=== PATIENT | female | born 1985 | race American Indian/Alaskan Native ===

== ENCOUNTER 2019-12-12 21:13 | Emergency (ER) | payer SELFPAY ==
[2019-12-12 21:48] LABS: Amorphous Crystals,Urine Few; Bacteria,Urine 1+ /HPF (Negative); Bilirubin,Urine NEG (Negative); Blood,Urine NEG (Negative); Calcium Oxalate Crystals,Urine 1+; Color,Urine Yellow (Yellow); Mucus,Urine FEW /HPF; Protein,Urine <15 mg/dL mg/dL (Negative)
[2019-12-12 21:50] LABS: HCG Qualitative,Urine Positive (Negative)
--- NOTE | 2019-12-12 21:59 | Emergency Department Report ---
ED General Adult HPI - General Chief complaint: Abdominal Pain Stated complaint: ABDOMINAL CRAMPS Time Seen by Provider: 12/12/19 21:34 Source: patient Mode of arrival: Ambulatory Limitations: No Limitations - History of Present Illness Initial comments: 34-year-old -Citizen Of [place] female patient presents with complaints of lower abdominal cramping x2 days. She denies any dysuria/hematuria, dyspareunia, fever/chills/sweats, nausea/vomiting/diarrhea, or constipation. She does admit to vaginal discharge, however states it is clear and it is her normal vaginal discharge. She denies any new changes to her discharge or odor. She also complains of breast tenderness. Patient states her last menstrual cycle was about 1 month ago. She denies any vaginal bleeding. - Related Data Previous Rx's Medication Instructions Recorded Last Taken Type Amoxicillin/Potassium Clav 1 each PO BID 5 Days #10 tablet 12/13/19 Unknown Rx [Augmentin 875-125 Tablet] metroNIDAZOLE [Flagyl TAB] 500 mg PO Q12HR 7 Days #14 tab 12/13/19 Unknown Rx Allergies Allergy/AdvReac Type Severity Reaction Status Date / Time No Known Allergies Allergy Unverified 12/12/19 21:21 ED Review of Systems ROS: Stated complaint: ABDOMINAL CRAMPS Other details as noted in HPI Constitutional: denies: chills, diaphoresis, fever, malaise, weakness Respiratory: denies: shortness of breath Cardiovascular: denies: chest pain Endocrine: denies: excessive sweating Gastrointestinal: abdominal pain. denies: nausea, vomiting, diarrhea, constipation, hematemesis, melena, hematochezia Genitourinary: denies: urgency, dysuria, frequency, hematuria, abnormal menses, dyspareunia Musculoskeletal: denies: back pain Neurological: denies: headache, weakness Hematological/Lymphatic: denies: swollen glands ED Past Medical Hx - Past Medical History Previous Medical History?: No - Surgical History Past Surgical History?: No - Social History Smoking Status: Current Every Day Smoker Substance Use Type: None - Medications Home Medications: Home Medications Medication Instructions Recorded Confirmed Last Taken Type Amoxicillin/Potassium Clav 1 each PO BID 5 Days #10 tablet 12/13/19 Unknown Rx [Augmentin 875-125 Tablet] metroNIDAZOLE [Flagyl TAB] 500 mg PO Q12HR 7 Days #14 tab 09/26/20 Unknown Rx ED Physical Exam - General Limitations: No Limitations General appearance: alert, in no apparent distress - Head Head exam: Present: atraumatic, normocephalic - Eye Eye exam: Present: normal appearance - ENT ENT exam: Present: normal exam - Neck Neck exam: Present: normal inspection - Respiratory Respiratory exam: Present: normal lung sounds bilaterally. Absent: respiratory distress - Cardiovascular Cardiovascular Exam: Present: regular rate, normal rhythm, normal heart sounds - GI/Abdominal GI/Abdominal exam: Present: soft, normal bowel sounds. Absent: distended, tenderness, guarding, rebound, rigid - External exam: Present: normal external exam Speculum exam: Present: vaginal discharge, cervical discharge. Absent: erythema, vaginal bleeding, foreign body, tissue Bi-manual exam: Absent: cervical motion tendernes, uterine tenderness - Back Exam Back exam: Present: normal inspection, full ROM. Absent: CVA tenderness (R), CVA tenderness (L) - Neurological Exam Neurological exam: Present: alert, oriented X3, normal gait - Psychiatric Psychiatric exam: Present: normal affect, normal mood - Skin Skin exam: Present: warm, dry, intact, normal color. Absent: rash, cyanosis, diaphoretic, ecchymosis ED Course Vital Signs 12/12/19 12/13/19 21:17 02:35 Temperature 98.7 F 99.3 F Pulse Rate 103 H 92 H Respiratory 16 17 Rate Blood Pressure 123/62 Blood Pressure 111/53 [Right] O2 Sat by Pulse 99 100 Oximetry ED Medical Decision Making - Lab Data Result diagrams: 12/12/19 22:16 12/12/19 22:16 - Radiology Data Radiology results: report reviewed ULTRASOUND OBSTETRIC INDICATION / CLINICAL INFORMATION: pain in early . Clinical Gestational Age (GA): 5.4 weeks.days TECHNIQUE: Transvaginal. COMPARISON: None available. FINDINGS: GESTATIONAL SAC: Well-defined oval shape and intrauterine in location. Gestational sac measures 1.16 cm, consistent with 6 weeks, 0 days. YOLK SAC: No significant abnormality. EMBRYO/FETUS: No pole identified at this time ADNEXA: No significant abnormality. FREE FLUID: None. ADDITIONAL FINDINGS: None. IMPRESSION: 1. Gestational sac seen with sac size corresponding to 6 weeks, 0 days gestational age. No pole identified at this time. Repeat exam in 1-2 weeks can be performed to confirm intrauterine . - Medical Decision Making 34-year-old -Citizen Of [place] female patient presents with complaints of lower abdominal cramping x2 days. She denies any dysuria/hematuria, dyspareunia, fever/chills/sweats, nausea/vomiting/diarrhea, or constipation. She does admit to vaginal discharge, however states it is clear and it is her normal vaginal discharge. She denies any new changes to her discharge or odor. She also complains of breast tenderness. Patient states her last menstrual cycle was about 1 month ago. She denies any vaginal bleeding. Urine test is positive. UA shows 10 WBCs. On pelvic exam, no CMT is noted however there is vaginal discharge. Wet prep is positive for BV and negative for trichomoniasis or yeast. Patient informed to follow-up on GC chlamydia test results in 3 days. OB ultrasound shows intrauterine gestational sac that corresponds with 6-week . Patient informed to get a repeat ultrasound in 1 week with an [employer]. Her vitals are normal, she is well- appearing, she is stable for discharge home. Prescriptions for metronidazole and Augmentin given for BV and UTI. Urine culture sent. Strict return precautions were discussed in detail with patient who verbalized understanding. Critical care attestation.: If time is entered above; I have spent that time in minutes in the direct care of this critically ill patient, excluding procedure time. ED Disposition Clinical Impression: Bacterial vaginosis Disposition: DC-01 TO HOME OR SELFCARE Is pt being admited?: No Condition: Stable Instructions: (ED), Bacterial Vaginosis (ED), Urinary Tract Infection in Women (ED) Prescriptions: Amoxicillin/Potassium Clav [Augmentin 875-125 Tablet] 1 each PO BID 5 Days #10 tablet metroNIDAZOLE [Flagyl TAB] 500 mg PO Q12HR 7 Days #14 tab Referrals: IVÁN CÁRDENAS MD [Staff Physician] - 3-5 Days Forms: STI Treatment and Prevention
[2019-12-12 22:39] LABS: Basophils % (Auto) 0.5 % (0.0-1.8); Eosinophils % (Auto) 0.3 % (0.0-4.3); Hematocrit 35.7 % (30.3-42.9); Hemoglobin 11.5 gm/dl (10.1-14.3); Lymphocytes # (Auto) 2.5 K/mm3 (1.2-5.4); Lymphocytes % (Auto) 29.5 % (13.4-35.0); Mean Corpuscular HGB Conc 32 % (30-34); Mean Corpuscular Volume 85 fl (79-97); Monocytes % (Auto) 11.4 % (0.0-7.3); Platelet Count 259 K/mm3 (140-440); Red Cell Distribution Width 13.7 % (13.2-15.2)
[2019-12-12 23:02] LABS: Alanine Aminotransferase 8 units/L (7-56); Albumin 4.1 g/dL (3.9-5); Blood Urea Nitrogen 8 mg/dL (7-17); Calcium 8.7 mg/dL (8.4-10.2); Hemolysis Index 8
[2019-12-12 23:10] LABS: BUN/Creatinine Ratio 11
--- NOTE | 2019-12-13 01:58 | Ultrasound Report ---
ULTRASOUND OBSTETRIC INDICATION / CLINICAL INFORMATION: pain in early . Clinical Gestational Age (GA): 5.4 weeks.days TECHNIQUE: Transvaginal. COMPARISON: None available. FINDINGS: GESTATIONAL SAC: Well-defined oval shape and intrauterine in location. Gestational sac measures 1.16 cm, consistent with 6 weeks, 0 days. YOLK SAC: No significant abnormality. EMBRYO/FETUS: No pole identified at this time ADNEXA: No significant abnormality. FREE FLUID: None. ADDITIONAL FINDINGS: None. IMPRESSION: 1. Gestational sac seen with sac size corresponding to 6 weeks, 0 days gestational age. No pole identified at this time. Repeat exam in 1-2 weeks can be performed to confirm intrauterine . Signer Name: Bhupinder Melgoza MD Signed: 12/13/2019 1:54 AM Workstation Name: [id number]
[2019-12-13 04:28] VITALS: BP 111/53
--- NOTE | 2019-12-15 08:10 | Ultrasound Report ---
ULTRASOUND OBSTETRIC INDICATION / CLINICAL INFORMATION: pain in early . Clinical Gestational Age (GA): 5.4 weeks.days TECHNIQUE: Transabdominal. COMPARISON: None available. FINDINGS: GESTATIONAL SAC: Well-defined oval shape and intrauterine in location. Gestational sac measures 1.16 cm, consistent with 6 weeks, 0 days. YOLK SAC: No significant abnormality. EMBRYO/FETUS: No pole identified at this time ADNEXA: No significant abnormality. FREE FLUID: None. ADDITIONAL FINDINGS: None. IMPRESSION: 1. Gestational sac seen with sac size corresponding to 6 weeks, 0 days gestational age. No pole identified at this time. Repeat exam in 1-2 weeks can be performed to confirm intrauterine . Signer Name: Bhupinder Melgoza MD Signed: 12/13/2019 1:47 AM Workstation Name: [id number]
== END 2019-12-13 02:35 | disposition home or self-care (01) ==
LOC: ED 21:13
DX: N76.0 Acute vaginitis (principal); F17.200 Nicotine dependence, unspecified, uncomplicated; Z79.2 Long term (current) use of antibiotics; Z79.899 Other long term (current) drug therapy
CPT/HCPCS: 36415; 76801; 76817; 80053; 81001; 81025; 84702; 85025; 87086; 87210; 87591

== ENCOUNTER 2021-05-18 05:37 | Emergency (ER) | payer SELFPAY ==
[2021-05-18] MEDS ORDERED: IBUPROFEN 800 MG TAB PO ONE (06:30)
--- NOTE | 2021-05-18 06:32 | Emergency Department Report ---
ED Headache HPI - General Chief Complaint: Headache Stated Complaint: RIGHT SIDE FACE PAIN Time Seen by Provider: 05/18/21 06:27 Source: patient - History of Present Illness Initial Comments: RT SIDED FACIAL PAIN NEEMA ORBITAL SINCE APPROX 0500HRS, DENINES INJURY Timing/Duration: 4-6 hours Quality: moderate Head Injury Location: frontal Recent Head Trauma: no recent headache/trauma Allergies/Adverse Reactions: Allergies No Known Allergies Allergy (Unverified 12/12/19 21:21) Home Medications: Ambulatory Orders Amoxicillin/Potassium Clav [Augmentin 875-125 Tablet] 1 each PO BID 5 Days #10 tablet 12/13/19 metroNIDAZOLE [Flagyl TAB] 500 mg PO Q12HR 7 Days #14 tab 12/13/19 ED Review of Systems ROS: Stated complaint: RIGHT SIDE FACE PAIN Other details as noted in HPI Constitutional: denies: chills, fever Eyes: denies: eye pain, eye discharge, vision change ENT: denies: ear pain, throat pain Respiratory: denies: cough, shortness of breath, wheezing Cardiovascular: denies: chest pain, palpitations Endocrine: no symptoms reported Gastrointestinal: denies: abdominal pain, nausea, diarrhea Genitourinary: denies: urgency, dysuria, discharge Musculoskeletal: denies: back pain, joint swelling, arthralgia Skin: denies: rash, lesions Neurological: denies: headache, weakness, paresthesias Psychiatric: denies: anxiety, depression Hematological/Lymphatic: denies: easy bleeding, easy bruising ED Past Medical Hx - Past Medical History Previous Medical History?: Yes - Surgical History Past Surgical History?: No - Social History Smoking Status: Never Smoker Substance Use Type: None - Medications Home Medications: Home Medications Medication Instructions Recorded Confirmed Last Taken Type Amoxicillin/Potassium Clav 1 each PO BID 5 Days #10 tablet 12/13/19 Unknown Rx [Augmentin 875-125 Tablet] metroNIDAZOLE [Flagyl TAB] 500 mg PO Q12HR 7 Days #14 tab 12/13/19 Unknown Rx ED Physical Exam - General Limitations: No Limitations General appearance: alert, in no apparent distress - Head Head exam: Present: atraumatic - Eye Eye exam: Present: normal appearance - ENT ENT exam: Present: mucous membranes moist, other (right maxillary tendneress) - Neck Neck exam: Present: normal inspection - Respiratory Respiratory exam: Present: normal lung sounds bilaterally. Absent: respiratory distress - Cardiovascular Cardiovascular Exam: Present: regular rate, normal rhythm. Absent: systolic murmur, diastolic murmur, rubs, gallop - GI/Abdominal GI/Abdominal exam: Present: soft, normal bowel sounds - Extremities Exam Extremities exam: Present: normal inspection - Back Exam Back exam: Present: normal inspection - Neurological Exam Neurological exam: Present: alert, oriented X3 - Psychiatric Psychiatric exam: Present: normal affect, normal mood - Skin Skin exam: Present: warm, dry, intact, normal color. Absent: rash ED Course Vital Signs 05/18/21 06:06 Temperature 98.5 F Pulse Rate 82 Respiratory 18 Rate Blood Pressure 144/65 O2 Sat by Pulse 100 Oximetry - Reevaluation(s) Reevaluation #1: 05/18/21 06:30 no fever , no rash Critical care attestation.: If time is entered above; I have spent that time in minutes in the direct care of this critically ill patient, excluding procedure time. ED Disposition Clinical Impression: Facial pain, Headache, Sinusitis Disposition: HOME / SELF CARE / HOMELESS Is pt being admited?: No Does the pt Need Aspirin: No Condition: Stable
[2021-05-18 07:23] VITALS: BP 107/55
== END 2021-05-18 06:45 | disposition home or self-care (01) ==
LOC: ED 05:37
DX: R51.9 Headache, unspecified (principal); J32.9 Chronic sinusitis, unspecified
CPT/HCPCS: 99282